=== PATIENT | female | born 1960 | race Caucasian/White ===

== ENCOUNTER 2018-01-20 08:42 | Emergency (ER) | payer OTHER ==
[~2018-01-20] VITALS: Ht 177.8 cm; Wt 73.3 kg
[2018-01-20 10:24] LABS: HEMATOCRIT 46.3 % (36.0-46.0); HEMOGLOBIN 16.2 G/DL (11.9-15.5); MCV 91.3 FL (83-99); PLATELET COUNT 164 K/uL (156-360); RBC DIS.WIDTH-CV 12.5 % (11.8-14.6); RBC DIS.WIDTH-SD 41.1 % (39-53); RED BLOOD COUNT 5.07 M/uL (3.80-5.20); WHITE BLOOD COUNT 5.6 K/uL (4.1-10.2)
[2018-01-20 10:35] LABS: ALBUMIN 4.3 g/dL (3.2-4.8)
[2018-01-20 10:36] LABS: CHLORIDE 112 mEq/L (99-109); POTASSIUM 3.8 mEq/L (3.7-5.4); SODIUM 142 mEq/L (136-147)
[2018-01-20 10:38] LABS: GLUCOSE 123 mg/dL (70-99); TOTAL PROTEIN 7.3 g/dL (6.4-8.3)
[2018-01-20 10:40] LABS: TOTAL BILIRUBIN 0.8 mg/dL (0.0-1.0)
[2018-01-20 10:41] LABS: ALKALINE PHOSPHATASE 82 IU/L (3-129)
[2018-01-20 10:42] LABS: CREATININE 0.8 mg/dL (0.6-1.3); GFR ESTIMATE (CALCULATED) > 59 mL/min/
[2018-01-20 10:43] LABS: AST (GOT) 35 IU/L (2-34); UREA NITROGEN (BUN) 19 mg/dL (9-23)
[2018-01-20 10:44] LABS: ALT (GPT) 41 IU/L (3-49)
[2018-01-20 10:45] LABS: LIPASE 37 U/L (1.0-51.0)
[2018-01-20 12:29] LABS: APPEARANCE SL.HAZY ((CLEAR)); BILIRUBIN NEGATIVE; BLOOD NEGATIVE; COLOR YELLOW ((YELLOW)); GLUCOSE (STRIP) NEGATIVE; KETONES 5; LEUKOCYTES NEGATIVE; NITRITE NEGATIVE; PROTEIN (STRIP) 100; UROBILINOGEN 0.2 MG/DL (0.2-1.0)
[2018-01-20 12:40] LABS: SPECIFIC GRAVITY > 1.060 (1.000-1.030)
[2018-01-20] MEDS ORDERED: ZOFRAN ODT4 MG PO (12:45)
[2018-01-20 13:22] LABS: RED BLOOD CELLS NONE SEEN /HPF (0-5); WHITE BLOOD CELLS NONE SEEN /HPF (0-5)
[2018-01-20 13:25] LABS: EPITHELIAL CELLS RARE /HPF; MUCUS NONE SEEN /LPF
[2018-01-20 13:26] LABS: BACTERIA NONE SEEN /HPF; HYALINE CASTS RARE /LPF
[2018-01-20 13:56] VITALS: BP 99/70
== END 2018-01-20 13:57 | disposition home or self-care (01) ==
LOC: EME 08:42
PROVIDERS: Nurse Practitioner Family
DX: K52.9 Noninfective gastroenteritis and colitis, unspecified (principal); E86.0 Dehydration; E11.9 Type 2 diabetes mellitus without complications; G25.81 Restless legs syndrome; E78.5 Hyperlipidemia, unspecified; G89.29 Other chronic pain; Z88.0 Allergy status to penicillin; Z88.8 Allergy status to other drugs, medicaments and biological substances; Z88.1 Allergy status to other antibiotic agents
CPT/HCPCS: 74177; 80053; 81003; 83690; 85027; 99281; 99285; J1885; J2405; J7030